=== PATIENT | male | born 1975 | race American Indian/Alaskan Native ===

== ENCOUNTER 2016-07-12 12:12 | Emergency (ER) | payer MEDICARE, MEDICAID ==
[2016-07-12 12:12] VITALS: BMI 21.7
[2016-07-12 12:22] VITALS: BP 119/60; PULSE 102; RESP 20; TEMP 98; O2SAT 97
--- NOTE | 2016-07-12 13:02 | ED PDOC ---
Arrival/HPI - General Historian: Patient <Larry Mireles - Last Filed: 07/12/16 12:59> <Janette Thompson - Last Filed: 07/12/16 13:21> - General Chief Complaint: Wound Check Time Seen by Provider: 07/12/16 12:27 - Critical Care Narrative Critical Care (Text): 07/12/16 13:00 This is a 41 year old male presenting to the ED for aimee-rectal abscess dressing change and evaluation. The patient reports that his packing fell out while at home. The patient was recently (07/11/16) discharged from the hospital with instructions to follow up in the ED today (07/12/16) and 07/14/16 for dressing changes. The patient reports pain at the incision site. Patient has continued his antibiotic course. (Larry Mireles) Past Medical History - Provider Review Nursing Documentation Reviewed: Yes - Travel History Have you recently traveled outside [place] w/in the past 3 mons?: No - Past History Past History: Non-Contributing - Infectious Disease Hx of Infectious Diseases: None - Tetanus Immunization Tetanus Immunization: Unknown - Past Medical History Past Medical History: Unable to Obtain - Cardiac Hx Cardiac Disorders: No Hx Hypertension: No - Pulmonary Hx Respiratory Disorders: No Hx Tuberculosis: No - Neurological Hx Neurological Disorder: Yes Hx Dizziness: Yes Hx Seizures: Yes - HEENT Hx HEENT Disorder: Yes (EAR SX) - Renal Hx Renal Disorder: No - Endocrine/Metabolic Hx Endocrine Disorders: No - Hematological/Oncological Hx Blood Disorders: No Hx Cancer: No - Integumentary Hx Dermatological Disorder: Yes Hx Psoriasis: Yes - Musculoskeletal/Rheumatological Hx Falls: Yes - Gastrointestinal Hx Gastrointestinal Disorders: No - Genitourinary/Gynecological Hx Genitourinary Disorders: No Hx Sexually Transmitted Diseases: No - Psychiatric Hx Psychophysiologic Disorder: Yes Hx Bipolar Disorder: Yes Hx Depression: Yes Hx Schizophrenia: Yes Hx Substance Use: No - Past Surgical History Past Surgical History: Unable to Obtain - Surgical History Other/Comment: I&D rectal abscess 06/2016 - Anesthesia Hx Anesthesia: Yes Hx Anesthesia Reactions: No - Suicidal Assessment Feels Threatened In Home Enviroment: No <Larry Mireles - Last Filed: 07/12/16 12:59> Family/Social History - Physician Review Nursing Documentation Reviewed: Yes Family/Social History: No Known Family HX Smoking Status: Current Some Days Smoker Hx Alcohol Use: Yes (ETOH ABUSE) Hx Substance Use: No <AlineLarry - Last Filed: 07/12/16 12:59> Allergies/Home Meds <Aline,Larry - Last Filed: 07/12/16 12:59> <Janette Thompson - Last Filed: 07/12/16 13:21> Allergies/Adverse Reactions: Allergies Penicillins Allergy (Verified 07/07/16 12:02) URTICARIA Review of Systems - Physician Review All systems were reviewed & negative as marked: Yes - Review of Systems Constitutional: absent: Fevers Respiratory: absent: SOB Cardiovascular: absent: Chest Pain Gastrointestinal: absent: Hematochezia Genitourinary Male: absent: Dysuria <Aline,Larry - Last Filed: 07/12/16 12:59> Physical Exam Temperature: Afebrile Blood Pressure: Normal Pulse: Regular Respiratory Rate: Normal Appearance: Positive for: Well-Appearing Pain Distress: None Mental Status: Positive for: Alert and Oriented X 3 - Systems Exam Head: Present: Atraumatic, Normocephalic Pupils: Present: PERRL Extroacular Muscles: Present: EOMI Conjunctiva: Present: Normal Mouth: Present: Moist Mucous Membranes Neck: Present: Normal Range of Motion Respiratory/Chest: Present: Clear to Auscultation, Good Air Exchange. No: Respiratory Distress, Accessory Muscle Use Cardiovascular: Present: Regular Rate and Rhythm, Normal S1, S2. No: Murmurs Abdomen: Present: Normal Bowel Sounds. No: Tenderness, Distention, Peritoneal Signs Rectal: Present: Other (two 1-2cm incisions b/l buttock. Minimal purulent drainage. no packing present. ABD pad removed and incisions repacked and re- dressed. Patient tolerated well. ) Upper Extremity: Present: Normal Inspection. No: Cyanosis, Edema Lower Extremity: Present: Normal Inspection. No: Edema Neurological: Present: CN II-XII Intact Skin: Present: Warm, Dry, Normal Color. No: Rashes Psychiatric: Present: Alert, Oriented x 3 <AlineLarry - Last Filed: 07/12/16 12:59> Vital Signs Temp Pulse Resp BP Pulse Ox 07/12/16 12:15 98 F 102 H 20 119/60 97 Medical Decision Making <Larry Mireles - Last Filed: 07/12/16 12:59> <Janette Thompson - Last Filed: 07/12/16 13:21> ED Course and Treatment: 07/12/16 13:05 Patient presented for aimee-rectal abscess dressing change. The patient was discharged with the instructions of having his dressing changed in the ED on and 07/14. The patient reports that the packing fell out after his admission. His incisions were repacked and dressed separately. The patient tolerated the dressing change well. The patient has continued his antibiotic course. The patient is aware of his follow up dressing change on 07/14/16. ( Larry Mireles) 07/12/16 13:19 Patient seen by resident and evaluated by me. Patient was instructed on discharge from hospital to return for dressing change. Wound examined and it has clean edges. No fever. Wound redressed by resident and checked by me. Patient instructed to continue antibiotics and return in 2 days for dressing change. Surgery aware that patient was in ED and agrees with above plan. ( Janette Thompson) - Procedure PROCEDURE NOTE (Text): 07/12/16 13:07 Dressing change Packing of per-rectal abscess incisions (Larry Mireles) - PA / [employer] ROOM WORKER / Resident Statement MD/DO has reviewed & agrees with the documentation as recorded. <Janette Thompson - Last Filed: 07/12/16 13:21> Disposition/Present on Arrival - Present on Arrival Any Indicators Present on Arrival: No History of DVT/PE: No History of Uncontrolled Diabetes: No Urinary Catheter: No History of Decub. Ulcer: No History Surgical Site Infection Following: None - Disposition Have Diagnosis and Disposition been Completed?: Yes Disposition Time: 13:08 <Larry Mireles - Last Filed: 07/12/16 12:59> <Janette Thompson - Last Filed: 07/12/16 13:21> - Disposition Diagnosis: Perirectal abscess Condition: GOOD Discharge Instructions (ExitCare): Abscess (ED) Print Language: URDU Additional Instructions: 1.) Continue antibiotics 2.) Keep dressing Clean/Dry/Intact 3.) Follow up 07/14/16 for repeat dressing change 4.) Please return to the ED if symptoms worsen Referrals: Ryan Hall MD [Medical Doctor] - Follow up with primary
== END 2016-07-12 15:16 | disposition home or self-care (01) ==
LOC: ED 12:12
DX: K61.1 Rectal abscess (principal); Z48.00 Encounter for change or removal of nonsurgical wound dressing

== ENCOUNTER 2016-07-14 10:41 | Emergency (ER) | payer MEDICARE, MEDICAID ==
[2016-07-14 11:10] VITALS: BP 106/80; PULSE 80; RESP 18; TEMP 98.6; O2SAT 99; BMI 21.6
--- NOTE | 2016-07-14 11:37 | ED PDOC ---
Arrival/HPI - General Historian: Patient - History of Present Illness Symptom Course: Improving <Larry Mireles - Last Filed: 07/14/16 12:00> <Maxi Romero DO - Last Filed: 07/14/16 12:14> - General Chief Complaint: Wound Check Time Seen by Provider: 07/14/16 11:30 - History of Present Illness Narrative History of Present Illness (Text): 07/14/16 11:34 This is a 41 year old male presenting to the ED for aimee-rectal abscess dressing change and evaluation. The patient reports that his packing once again fell out while at home. The patient was recently (07/11/16) discharged from the hospital with instructions to follow up in the ED 07/12/16 and today, , for dressing changes. The patient was seen and examined with Dr. Alford , and Dr. Fernandez (surgical orderly), and it was determined that the patient would not need new dressing on his incisions. It was recommended that the patient soak his incisions in warm soapy water. The patient remains compliant with his antibiotic regimen. The patient reports pain at the incision site. The patient also reports nocturnal pruritis. The patient will follow up with Dr. Hall as an outpatient. 07/14/16 12:00 07/14/16 12:05 (Larry Mireles) Past Medical History - Provider Review Nursing Documentation Reviewed: Yes - Past History Past History: Non-Contributing - Infectious Disease Hx of Infectious Diseases: None - Tetanus Immunization Tetanus Immunization: Unknown - Past Medical History Past Medical History: Unable to Obtain - Cardiac Hx Cardiac Disorders: No Hx Hypertension: No - Pulmonary Hx Respiratory Disorders: No Hx Tuberculosis: No - Neurological Hx Neurological Disorder: Yes Hx Dizziness: Yes Hx Seizures: Yes - HEENT Hx HEENT Disorder: Yes (EAR SX) - Renal Hx Renal Disorder: No - Endocrine/Metabolic Hx Endocrine Disorders: No - Hematological/Oncological Hx Blood Disorders: No Hx Cancer: No - Integumentary Hx Dermatological Disorder: Yes Hx Psoriasis: Yes - Musculoskeletal/Rheumatological Hx Falls: Yes - Gastrointestinal Hx Gastrointestinal Disorders: No - Genitourinary/Gynecological Hx Genitourinary Disorders: No Hx Sexually Transmitted Diseases: No - Psychiatric Hx Psychophysiologic Disorder: Yes Hx Bipolar Disorder: Yes Hx Depression: Yes Hx Schizophrenia: Yes Hx Substance Use: No - Past Surgical History Past Surgical History: Unable to Obtain - Surgical History Other/Comment: I&D rectal abscess 06/2016 - Anesthesia Hx Anesthesia: Yes Hx Anesthesia Reactions: No - Suicidal Assessment Feels Threatened In Home Enviroment: No <Larry Mireles - Last Filed: 07/14/16 12:00> Family/Social History - Physician Review Nursing Documentation Reviewed: Yes Family/Social History: No Known Family HX Smoking Status: Current Some Days Smoker Hx Alcohol Use: Yes (ETOH ABUSE) Hx Substance Use: No <Larry Mireles - Last Filed: 07/14/16 12:00> Allergies/Home Meds <Larry Mireles - Last Filed: 07/14/16 12:00> <Maxi Romero DO - Last Filed: 07/14/16 12:14> Allergies/Adverse Reactions: Allergies Penicillins Allergy (Verified 07/07/16 12:02) URTICARIA Review of Systems - Physician Review All systems were reviewed & negative as marked: Yes - Review of Systems Constitutional: absent: Fatigue, Fevers Gastrointestinal: absent: Constipation, Diarrhea, Hematochezia <Larry Mireles - Last Filed: 07/14/16 12:00> Physical Exam Vital Signs Reviewed: Yes Temperature: Afebrile Blood Pressure: Normal Pulse: Regular Respiratory Rate: Normal Appearance: Positive for: Well-Appearing Pain Distress: None Mental Status: Positive for: Alert and Oriented X 3 - Systems Exam Head: Present: Atraumatic, Normocephalic Pupils: Present: PERRL Extroacular Muscles: Present: EOMI Conjunctiva: Present: Normal Mouth: Present: Moist Mucous Membranes Neck: Present: Normal Range of Motion Respiratory/Chest: Present: Clear to Auscultation, Good Air Exchange. No: Respiratory Distress, Accessory Muscle Use Cardiovascular: Present: Regular Rate and Rhythm, Normal S1, S2. No: Murmurs Abdomen: Present: Normal Bowel Sounds. No: Tenderness, Distention, Peritoneal Signs Rectal: Present: Rectal Tenderness, Other (two 1-2cm incisions b/l buttock. Minimal purulent drainage. no packing present. ABD pad removed and incisions repacked and re-dressed. Patient tolerated well.). No: Gross Blood Upper Extremity: Present: Normal Inspection. No: Cyanosis, Edema Lower Extremity: Present: Normal Inspection. No: Edema Neurological: Present: GCS=15, CN II-XII Intact, Speech Normal Skin: Present: Warm, Dry, Normal Color. No: Rashes Psychiatric: Present: Alert, Oriented x 3 <Larry Mireles - Last Filed: 07/14/16 12:00> Vital Signs Temp Pulse Resp BP Pulse Ox 07/14/16 11:06 98.6 F 80 18 106/80 99 Medical Decision Making <Larry Mireles - Last Filed: 07/14/16 12:00> <Maxi Romero DO - Last Filed: 07/14/16 12:14> ED Course and Treatment: 07/14/16 11:41 Patient presented for aimee-rectal abscess dressing change. The patient was discharged with the instructions of having his dressing changed in the ED on and 07/14. The patient reports that the packing fell out after his admission and again after dressing change on 07/12/16. His incisions were inspected by Dr. Alford and deemed that they would not need re-dressing. The patient was recommended to use soak the incisions in warm soapy water. The patient was prescribed benedryl for the pruritis and instructed to follow up with Dr. Hall as an outpatient. The patient will continue his antibiotic course. He will follow with Dr. Hall as an outpatient. 07/14/16 12:02 (Larry Mireles) 07/14/16 11:45 41 year old male presenting with aimee-rectal abscess requesting dressing change and evaluation. In agreement with resident note, which includes further HPI details. Patient was seen and evaluated with resident, came up with plan and treatment together. On physical exam patient with two 1-2 incisions on buttocks bilaterally. Minimal purulent drainage. (Maxi Romero DO) <Larry Mireles - Last Filed: 07/14/16 12:00> - PA / HEALTH SUPPORT SPECIALIST / Resident Statement MITCHELL has reviewed & agrees with the documentation as recorded. MITCHELL has examined the patient and agrees with the treatment plan. - Scribe Statement The provider has reviewed the documentation as recorded by the Scribe <Maxi Romero DO - Last Filed: 07/14/16 12:14> - Scribe Statement Prashant Tran All medical record entries made by the Nallelyibe were at my direction and personally dictated by me. I have reviewed the chart and agree that the record accurately reflects my personal performance of the history, physical exam, medical decision making, and the department course for this patient. I have also personally directed, reviewed, and agree with the discharge instructions and disposition. (Maxi Romero DO) Disposition/Present on Arrival - Present on Arrival Any Indicators Present on Arrival: No History of DVT/PE: No History of Uncontrolled Diabetes: No Urinary Catheter: No History of Decub. Ulcer: No History Surgical Site Infection Following: None - Disposition Have Diagnosis and Disposition been Completed?: Yes Disposition Time: 12:00 Patient Plan: Discharge <Larry Mireles - Last Filed: 07/14/16 12:00> <Maxi Romero DO - Last Filed: 07/14/16 12:14> - Disposition Diagnosis: Perirectal abscess Disposition: HOME/ ROUTINE Discharge Instructions (ExitCare): Abscess (ED) Print Language: TURKISH Additional Instructions: 1.) Continue antibiotics 2.) Keep dressing Clean/Dry/Intact 3.) Follow up with Dr. Hall as an outpatient 4.) Please return to the ED if symptoms worsen Prescriptions: DiphenhydrAMINE [Benadryl] 25 mg PO HS PRN #30 cap PRN Reason: Itching / Pruritus Referrals: Ryan Hall MD [Medical Doctor] - Follow up with primary
== END 2016-07-14 12:28 | disposition home or self-care (01) ==
LOC: ED 10:41
DX: K61.1 Rectal abscess (principal)